=== PATIENT | male | born 1965 | race Caucasian/White ===

== ENCOUNTER 2019-01-01 19:20 | Inpatient (IN) ==
[2019-01-01] MEDS ORDERED: MORPHINE IV ONE ×2 (19:35→21:29)
[2019-01-01 20:24] LABS: BASO# 0.08 X1000 (0.0-0.2); BASO% 0.8 % (0.0-0.8); EOS# 0.18 X1000 (0.0-0.7); EOS% 1.9 % (0.0-10.0); HEMATOCRIT 39.4 % (42.0-52.0); HEMOGLOBIN 13.3 g/dL (14.0-18.0); IMM GRAN# 0.03 X1000 (0.0-0.04); IMM GRAN% 0.3 % (0.0-0.5); LYMPH# 2.51 X1000 (1.2-3.4); LYMPH% 26.1 % (20.5-51.1); MCH 29.7 PG (27-31); MCHC 33.8 g/dL (33-37); MCV 87.9 FL (81-99); MONO# 0.79 X1000 (0.11-0.59); MONO% 8.2 % (1.7-9.3); MPV 11.8 FL (7.4-10.4); NEUT# 6.02 X1000 (1.4-6.5); NEUT% 62.7 % (42.2-75.2); PLT 253 X1000 (130-400); RBC 4.48 XMIL (4.7-6.1); RDW 14.2 % (11.5-14.5); WBC 9.61 X1000 (4.8-10.8)
--- NOTE | 2019-01-01 20:24 | Diag Imaging Result Doc PS360 ---
EXAM: CHEST-1 VIEW - 01/01/2019 HISTORY: pre op for surgery TECHNIQUE: One view chest COMPARISON: None. FINDINGS: Heart size is normal. There is tortuosity of the thoracic aorta. Lungs appear clear. There is no pleural effusion or pneumothorax identified. IMPRESSION: No evidence of acute disease. Electronically signed by Jay Pleitez 01/01/2019 8:21 PM
[2019-01-01 20:25] LABS: INR 0.96; PROTIME 13.6 Seconds (11.0-16.0)
[2019-01-01 20:26] LABS: PTT 29.2 Seconds (22.3-41.8)
--- NOTE | 2019-01-01 20:36 | Diag Imaging Result Doc PS360 ---
EXAM: CT ABD/PELVIS W/IV CONT ONLY - 01/01/2019 HISTORY: puncture wound to anus TECHNIQUE: CT abdomen/pelvis with intravenous contrast. COMPARISON: None. FINDINGS: The visualized lung bases appear essentially clear. There are no substantial abnormalities of the liver, spleen, adrenal glands, pancreas, or kidneys identified. There are no calcified gallstones seen. There is a 5.9 cm and AP dimension by 5.5 cm in transverse dimension primarily mildly increased density lesion in the presacral region adjacent to anterior margin of the upper sacrum. This is compatible with hematoma. There is no extraluminal gas identified. There is no free air identified. There is no fracture identified. There are lumbar spine degenerative changes noted. There is no evidence of bowel obstruction. There is no substantial free fluid. The appendix is unremarkable. Delay images of the pelvis show no contrast extravasation from the urinary bladder. IMPRESSION: 5.9 x 5.5 cm presacral hematoma which abuts the anterior margin of the upper sacrum. No evidence of fracture. No extraluminal gas identified. No free air. This exam was performed using automated exposure control, adjustment of mA or kV according to patient size, and/or use of iterative reconstruction technique. Electronically signed by Jay Pleitez 01/01/2019 8:33 PM
[2019-01-01 20:47] LABS: AGAP 15; ALB/GLOB RATIO 1.3; ALKALINE PHOSPHATASE 79 U/L (32-122); BUN 13 mg/dL (8-22); CALCIUM 9.4 mg/dL (8.8-10.2); CHLORIDE 107 mmol/L (98-107); COSMO 283; CREATININE 0.9 mg/dL (0.7-1.2); ESTIMATED GFR > 60; GLUCOSE 87 mg/dL (70-104); GOT 25 U/L (10-34); GPT 21 U/L (10-44); POTASSIUM 4.3 mmol/L (3.5-5.1); SODIUM 142 mmol/L (136-145); TCO2 20 mmol/L (25-35); TOTAL BILIRUBIN 0.32 mg/dL (0.20-1.00); TOTAL PROTEIN 7.2 g/dL (6.3-8.3)
[2019-01-01] MEDS ORDERED: VANCOMYCIN 1 GM/NS 1 GM/250 ML IVPB IV ONE (21:13)
[2019-01-01] MEDS ORDERED: ZOSYN 3.375 GM in NS 50 ML IV ONE (21:13)
[2019-01-01] MEDS ORDERED: NICODERM PATCH TD ONE (21:29)
--- NOTE | 2019-01-01 21:34 | PROVIDER DOCUMENTATION ---
This chart was entered by Kaylynn Razo Scribe, acting as scribe for Lauro Rodríguez MD. HPI-Rash/Wound/ReCheck - General Chief Complaint: General Adult Stated Complaint: foreign body Time Seen by Provider: 01/01/19 19:24 Source: patient Allergies/Adverse Reactions: Allergies Allergy/AdvReac Type Severity Reaction Status Date / Time No Known Allergies Allergy Verified 08/03/12 10:50 Home Medications: Home Medication List Medication Instructions Recorded Confirmed Last Taken Type No Home Medications 08/03/12 08/03/12 Unknown History - History of Present Illness-Dermatology Nature of Presenting Problem: 53 yom c/o pt was on ladder and fell 4 ft onto a [place] and states a stick went up rectum. pt states he had been drinking and snorted 2 lines of cocaine today. pt reports no other injuries. pt is anxious and states pain is sharp and 10/10. Location: reports: lower extremity (rectum) Quality: reports: other (sharp) Severity: reports: moderate Onset/Duration: reports: just prior to arrival Timing: reports: still present Review of Systems - Adult - REVIEW OF SYSTEMS - ADULT Constitutional: reports: no symptoms reported Eyes: reports: no symptoms reported Ears, Nose, Mouth & Throat: reports: no symptoms reported Cardiovascular: reports: no symptoms reported Respiratory: reports: no symptoms reported Gastrointestinal: reports: no symptoms reported Genitourinary: reports: no symptoms reported Musculoskeletal: reports: no symptoms reported Integumentary: reports: see HPI, other (rectum injury due to falling on stick.) Neurological: reports: no symptoms reported Psychiatric: reports: no symptoms reported Endocrine: reports: no symptoms reported Hematologic/Lymphatic: reports: no symptoms reported Allergic/Immunologic: reports: no symptoms reported All Other Systems: Reviewed and Negative Past History - Adult - PAST MEDICAL HISTORY-ADULT Review of Records: reports: Old Records Reviewed, Nursing Assessment Review, Medications Reviewed, Social history reviewed & non-contributory. Major Childhood Illnesses: reports: denies history Cardiovascular: reports: denies history Respiratory: reports: denies history Gastrointestinal: reports: denies history Obstetrical/Gynecological: reports: denies history Genitourinary: reports: denies history Musculoskeletal: reports: denies history Neurological: reports: denies history Psychiatric: reports: other (adhd) Endocrine/Immune: reports: denies history Other Conditions: reports: denies history - PRIOR SURGERIES/PROCEDURES Surgical/Procedure History: reports: tonsillectomy, hernia repair - IMMUNIZATION STATUS Childhood Immunizations: See Nurse Assessment Flu Vaccine: See Nurse Assessment - FAMILY HISTORY Family History: reviewed, not pertinent - SOCIAL HISTORY Smoking: cigarettes, less than 1 pack/day Provider spent 3-5 mins advising pt. on dangers of tobacco.: Discussed manners to quit use, and f/u contacts for add'l counseling. Substance Use: alcohol, marijuana, cocaine Physical Exam-General - PHYSICAL EXAM-ADULT Initial Vital Signs Reviewed: Yes - CONSTITUTIONAL General Appearance: alert, mild distress, anxious. negative: lethargic, slow to respond, obtunded - EYES Eyes: PERRL/EOMI - HEAD, EARS, NOSE, MOUTH & THROAT HENMT: normocephalic/atraumatic, moist mucous membranes, normal ENT inspection - NECK Neck: non-tender, full range of motion, supple, normal inspection - RESPIRATORY Respiratory: chest non-tender, lungs clear, normal breath sounds - CARDIOVASCULAR Cardiovascular: normal peripheral pulses, regular rate, rhythm - GASTROINTESTINAL (ABDOMEN) Abdominal Exam: normal bowel sounds, non tender, soft - GENITOURINARY Male Genitalia: deferred Rectal Exam: normal rectal tone, tenderness (entry location near rectum, no visible debris), other (blood and stool near rectum). negative: decreased tone, hemorrhoids - LYMPHATIC Lymphatic: no adenopathy - MUSCULOSKELETAL Back Exam: normal inspection, no CVA tenderness, no vertebral tenderness Extremity: normal range of motion, non-tender, normal inspection Peripheral Pulses: radial (R): 2+, radial (L): 2+ - SKIN Integumentary: normal color, normal turgor, warm/dry - NEUROLOGIC Neurologic: grossly normal, no motor/sensory deficits - PSYCHIATRIC Psych/Mental Status: normal mood/affect, normal thought content, normal thought process, oriented x 3 Progress - PLAN OF CARE/RESULTS Progress/Plan/Lab Results: Vital Signs - 8 hr 01/01/19 19:48 Temperature 98.4 F Pulse Rate 97 H Respiratory Rate 18 Blood Pressure 120/81 O2 Sat by Pulse Oximetry 96 Laboratory Results - last 24 hr 01/01/19 01/01/19 01/01/19 19:39 19:39 19:39 WBC 9.61 RBC 4.48 L Hgb 13.3 L Hct 39.4 L MCV 87.9 MCH 29.7 MCHC 33.8 RDW Std Deviation 14.2 Plt Count 253 MPV 11.8 H Immature Gran % (Auto) 0.3 Neut % (Auto) 62.7 Lymph % (Auto) 26.1 [facility] % (Auto) 8.2 Eos % (Auto) 1.9 Baso % (Auto) 0.8 Immature Gran # (Auto) 0.03 Neut # (Auto) 6.02 Lymph # (Auto) 2.51 [facility] [place] [facility] # (Auto) 0.79 H Eos # (Auto) 0.18 Baso # (Auto) 0.08 PT 13.6 INR 0.96 PTT (Actin FS) 29.2 Sodium 142 Potassium 4.3 Chloride 107 Carbon Dioxide 20 L Anion Gap 15 BUN 13 Creatinine 0.9 Estimated GFR/1.73 m2 > 60 BUN/Creatinine Ratio 14 Glucose 87 Calculated Osmolality 283 Calcium 9.4 Total Bilirubin 0.32 AST 25 ALT 21 Alkaline Phosphatase 79 Total Protein 7.2 Albumin 4.0 Globulin 3.2 Albumin/Globulin Ratio 1.3 Orders Category Date Time Status Saline Loc NOW Care 01/01/19 19:31 Active CHEST-1 VIEW [RAD] Stat Exams 01/01/19 19:[address] ABD/PELVIS W/IV CONT ONLY [CT] Stat Exams 01/01/19 19:31 Completed CBC WITH ELECTRONIC DIFF [HEME] Stat Lab 01/01/19 19:39 Completed COMPREHENSIVE METABOLIC PANEL [CHEM] Stat Lab 01/01/19 19:39 Completed PROTIME WITH INR [COAG] Stat Lab 01/01/19 19:39 Completed PTT [COAG] Stat Lab 01/01/19 19:39 Completed Morphine Med 01/01/19 19:35 Discontinued 4 mg IV NOW ONE Morphine Med 01/01/19 21:29 Once 4 mg IV NOW ONE Nicotine Patch [Nicoderm Patch] Med 01/01/19 21:29 Once 21 mg TD NOW ONE Piperacillin/Tazobactam [Zosyn] 3.375 gm Med 01/01/19 21:13 Active 0.9% Sodium Chloride Inj [Ns] 50 ml IV NOW Vancomycin 1 gm/Ns Med 01/01/19 21:13 Active 1 gm in 250 ml IV NOW EKG [EKG] Stat Ther 01/01/19 19:31 Ordered A/P: anal trauma due to falling on a stick. [address], started vanc, zosyn, pain controlled. vitals stable. No signicant PMH. Dr Woodward called, will see pt in am, dr ambrosio accepted admission. Result Diagrams: 01/01/19 19:39 01/01/19 19:39 - XRAY 1 XRAY: Bilateral XRAY Study: Chest ( EXAM: CHEST-1 VIEW - 01/01/2019 HISTORY: pre op for surgery TECHNIQUE: One view chest COMPARISON: None. FINDINGS: Heart size is normal. There is tortuosity of the thoracic aorta. Lungs appear clear. There is no pleural effusion or pneumothorax identified. IMPRESSION: No evidence of acute disease. Electronically signed by BDA 01/01/2019 8:21 PM) Impression: Normal Comparison with other Films: no prior study - CT/MRI 1 CT Study: Abdomen (EXAM: CT ABD/PELVIS W/IV CONT ONLY - 01/01/2019 HISTORY: puncture wound to anus TECHNIQUE: CT abdomen/pelvis with intravenous contrast. COMPARISON: None. FINDINGS: The visualized lung bases appear essentially clear. There are no substantial abnormalities of the liver, spleen, adrenal glands, pancreas, or kidneys identified. There are no calcified gallstones seen. There is a 5.9 cm and AP dimension by 5.5 cm in transverse dimension primarily mildly increased density lesion in the presacral region adjacent to anterior margin of the upper sacrum. This is compatible with hematoma. There is no extraluminal gas identified. There is no free air identified. There is no fracture identified. There are lumbar spine degenerative changes noted. There is no evidence of bowel obstruction. There is no substantial free fluid. The appendix is unremarkable. Delay images of the pelvis show no contrast extravasation from the urinary bladder. IMPRESSION: 5.9 x 5.5 cm presacral hematoma which abuts the anterior margin of the upper sacrum. No evidence of fracture. No extraluminal gas identified. No free air. This exam was performed using automated exposure control, adjustment of mA or kV according to patient size, and/or use of iterative reconstruction technique. Electronically signed by BDA 01/01/2019 8:33 PM), Pelvis Impression: Abnormal Comparison with other Films: no prior study Departure - Departure Date of Disposition Decision: 01/01/19 Time of Disposition Decision: 21:32 DIAGNOSIS: Anal disorder Disposition: ADMITTED INPATIENT 09 Certified Medical Emergency: Emergent Condition: Stable Additional Freetext Instructions: We have examined and treated you today on an emergency basis only. This was not a substitute for, or an effort to provide, complete medical care. In most cases, you must let your doctor check you again. Tell your doctor about any new or lasting problems. We cannot recognize and treat all injuries or illnesses in one Emergency Department visit. If you had special tests, such as X-rays or CT scans, will be reviewed by radiologist and will call you if there are any new suggestions Follow up with primary care provider in 1 to 2 days if no improvement. If you do not have a primary care provider, you need to choose one as soon as possible. Take medicines as prescribed. Monitor for any side effects or adverse events from medications. If any side effect, adverse event or rash develops, or if you suspect any other adverse reaction to the medication, then discontinue the medication immediately and contact clinic /PCP or go to the nearest ER. Narcotic meds / sedative meds instruction - patent advised not to drive, operate any machinery or go into water after taking meds as it may impair mental ability to react to the situation in an appropriate manner. Continue other current medicines. Follow up with PCP within 24-48 hours, or sooner if symptoms worsen or fail to improve. Patient / guardian verbalizes understanding of treatment plan, medication, and side effects and agrees with treatment plan. Patient leaves ER in stable condition and ambulatory state. Return to ER as needed. Discharge instructions reviewed verbally and given to patient in written form. Follow up with primary care provider. Referrals and Follow-Ups: None,PCP [Primary Care Provider] - - Critical Care Note This patient required my direct & personal management of CC.: No Attestation - Physician/ JOSE Attestation Patient care was provided by Advanced Practice Provider:: No The physician spent face to face time with patient:: Yes Advanced Practice Provider documentation review:: Supervising physician onsite and consulted in the evaluation and care of this patient. The physician did have a face to face encounter with the patient. This chart was documented by the indicated scribe, (Kaylynn Razo Scribe) and accurately reflects the services I performed and decisions made by me, Lauro Rodríguez MD, as attested by the provider's signature.
--- NOTE | 2019-01-01 22:27 | HISTORY AND PHYSICAL ---
PRIMARY CARE PHYSICIAN: None. CHIEF COMPLAINT: Anal region pain. HISTORY OF PRESENTING ILLNESS: A 53-year-old male without any significant past medical history who presented to emergency department after he had a fall and landed on some shrubs that went through his pants into his sacral and anal region. He states that he developed moderate amount of pain and subsequently had come to the emergency department. In the ED he was evaluated, and he had imaging done, which did show presacral hematoma. Due to his presenting symptoms, he will need admission for further management. At the time of my examination, he had denied any headache, fever, chills, chest pain, shortness of breath, hemoptysis, melena and weight changes. He just complained of pain in his sacral region. PAST MEDICAL HISTORY: None. PAST SURGICAL HISTORY: History of hernia repair. ALLERGIES: No known drug allergies. CURRENT MEDICATIONS: None. SOCIAL HISTORY: A 40-pack years history of smoking. Admits to alcohol use regularly, admits to recent cocaine use and marijuana use. FAMILY HISTORY: No history of coronary disease. REVIEW OF SYSTEMS: Fourteen-point review of systems listed as in HPI. Other systems negative. PHYSICAL EXAMINATION: GENERAL: Cooperative, friendly male. He is in moderate pain in his sacral/anal region. VITAL SIGNS: Temperature 98.4 degrees, pulse 97, respirations 18, blood pressure 120/81. HEENT: Atraumatic. Extraocular movements intact. PERRLA. NECK: No masses. CHEST: Clear to auscultation. CARDIOVASCULAR: Regular rate and rhythm. ABDOMEN: Soft. Positive bowel sounds. GENITOURINARY: Tenderness in sacral/anal region. NEUROLOGIC: Nonfocal. SKIN: Warm. LABORATORIES AND STUDIES: WBC 9.61, hemoglobin 13.3, hematocrit 39.4, platelets 253,000. Sodium 142, potassium 4.3, chloride 107, CO2 20, BUN is 13, creatinine 0.9, glucose is 87. CT of the abdomen and pelvis shows a 5.9 x 5.5 cm presacral hematoma. ASSESSMENT: A 53-year-old male without any significant past medical history claims to have fallen off a ladder and landed on some shrubs that tore through his pants and went up in his sacral/anal region. He developed a moderate amount of pain and was brought to the emergency department. He had imaging done, which did show presacral hematoma. This case was discussed with general surgery who recommended admission for further management. 1. Presacral hematoma from foreign body. 2. Tobacco abuse. 3. Drug abuse with cocaine and marijuana. PLAN: 1. We will admit patient to medical floor with telemetry. 2. Continue supportive treatment with IV fluids, antiemetics, and pain control. 3. Consult General Surgery. 4. Counseled patient on smoking and drug cessation. 5. We will put patient on DVT prophylaxis with SCDs. 6. We will continue to follow and reassess and make further recommendation based on patient's clinical course. cc: Tate Ortega MD
[2019-01-02] MEDS ORDERED: ZOFRAN IV PRN (00:07)
[2019-01-02] MEDS: NS 1,000 ML IV SCH ×3 (00:32→19:36)
[2019-01-02] MEDS: ZOSYN 3.375 GM in NS 50 ML IV SCH ×5 (03:03→21:14)
[2019-01-02] MEDS: MORPHINE IV PRN ×5 (03:03→21:27)
[2019-01-02 07:51] LABS: BASO# 0.03 X1000 (0.0-0.2); BASO% 0.2 % (0.0-0.8); EOS# 0.04 X1000 (0.0-0.7); EOS% 0.2 % (0.0-10.0); HEMOGLOBIN 11.8 g/dL (14.0-18.0); IMM GRAN# 0.04 X1000 (0.0-0.04); IMM GRAN% 0.2 % (0.0-0.5); LYMPH# 1.38 X1000 (1.2-3.4); LYMPH% 7.5 % (20.5-51.1); MCH 29.1 PG (27-31); MCHC 32.8 g/dL (33-37); MCV 88.9 FL (81-99); MONO# 1.31 X1000 (0.11-0.59); MONO% 7.1 % (1.7-9.3); MPV 11.5 FL (7.4-10.4); NEUT# 15.54 X1000 (1.4-6.5); NEUT% 84.8 % (42.2-75.2); PLT 216 X1000 (130-400); RBC 4.05 XMIL (4.7-6.1); RDW 14.3 % (11.5-14.5); WBC 18.34 X1000 (4.8-10.8)
[2019-01-02] MEDS ORDERED: ROBINUL ONE ×2 (08:05→09:55)
[2019-01-02] MEDS ORDERED: XYLOCAINE-MPF 2% ONE (08:05)
[2019-01-02] MEDS ORDERED: ZEMURON ONE ×3 (08:07→10:07)
[2019-01-02] MEDS ORDERED: FENTANYL ONE (08:07)
[2019-01-02] MEDS ORDERED: QUELICIN (DOSE) ONE (08:07)
[2019-01-02] MEDS ORDERED: MORPHINE IV ONE (08:08)
[2019-01-02] MEDS ORDERED: DIPRIVAN 1% ONE (08:08)
[2019-01-02 08:09] LABS: AGAP 11; BUN 12 mg/dL (8-22); CALCIUM 8.5 mg/dL (8.8-10.2); CHLORIDE 103 mmol/L (98-107); COSMO 274; CREATININE 0.8 mg/dL (0.7-1.2); ESTIMATED GFR > 60; GLUCOSE 108 mg/dL (70-104); SODIUM 137 mmol/L (136-145); TCO2 23 mmol/L (25-35)
[2019-01-02] MEDS ORDERED: VERSED ONE (08:54)
[2019-01-02] MEDS ORDERED: EPHEDRINE ONE (09:09)
[2019-01-02] MEDS ORDERED: ZOFRAN ONE (09:09)
[2019-01-02] MEDS ORDERED: MARCAINE 0.25% ONE (09:12)
[2019-01-02] MEDS ORDERED: EXPAREL 1.3% ONE (09:13)
[2019-01-02] MEDS ORDERED: SODIUM CHLORIDE 0.9% 10 ML ONE ×2 (09:13→09:14)
[2019-01-02] MEDS ORDERED: NEO-SYNEPHRINE ONE (09:14)
[2019-01-02] MEDS ORDERED: NEOSTIGMINE ONE (09:56)
[2019-01-02 11:13] LABS: URINE SOURCE CATH
[2019-01-02 11:15] LABS: BILIRUBIN URINE NEGATIVE (NEGATIVE); BLOOD URINE NEGATIVE (NEGATIVE); COLOR YELLOW; GLUCOSE URINE NEGATIVE (NEGATIVE); KETONE URINE NEGATIVE (NEGATIVE); LEUKOCYTES URINE NEGATIVE (NEGATIVE); NITRITE URINE NEGATIVE (NEGATIVE); PH URINE 5.5; PROTEIN URINE NEGATIVE (NEGATIVE); SP GRAVITY URINE 1.024; TURBIDITY URINE CLEAR (CLEAR); UROBILINOGEN URINE NORMAL (NORMAL)
[2019-01-02 11:17] LABS: UR EPITHELIAL CELLS <10 /HPF (<10); URINE BACTERIA NEGATIVE /HPF; URINE RBC <10 /HPF (<10); URINE WBC <10 /HPF (<10)
[2019-01-02] MEDS ORDERED: NS 1,000 ML ONE (11:19)
[2019-01-02] MEDS ORDERED: HEPARIN SUBQ SCH (13:00)
--- NOTE | 2019-01-02 13:08 | GENERAL SURGERY CONSULTATION ---
DATE: 01/02/2019 REQUESTING PHYSICIAN: The hospitalist. REASON FOR CONSULTATION: Anal pain status post trauma. HISTORY OF PRESENT ILLNESS: A 54-year-old gentleman who apparently fell off a ladder and fell into some scrubs and landed on his sacral anal region, coming to the emergency department with abdominal rectal pain. He had a CT scan that showed a presacral hematoma. He still reports significant pain in his bottom. He still had a significant amount of blood around the area, but reports significant tenderness in the area. He has never had pain like this before. PAST MEDICAL HISTORY: None. PAST SURGICAL HISTORY: Includes previous hernia repair. ALLERGIES: None. CURRENT MEDICATIONS: He is on vancomycin and Zosyn. SOCIAL HISTORY: Current smoker. FAMILY HISTORY: Reviewed. Patient noncontributory. REVIEW OF SYSTEMS: A full 10 point review of systems obtained, negative except as specified in HPI. PHYSICAL EXAMINATION: Vital Signs: Patient is currently afebrile. Vital signs stable. General exam: No acute distress, but appears uncomfortable. male looks stated age. HEENT: Normocephalic, atraumatic. Pupils equal, round, reactive to light. Mucous membranes moist. Oropharynx benign. Neck: Supple. Trachea midline. Cardiovascular: Regular rate and rhythm. Lungs: Grossly clear. Abdomen: Soft. Some mild suprapubic tenderness. Rectal Exam: Limited secondary to pain, but there is blood around the area. Extremities: Moves all extremities. Neurologic: Grossly intact. Skin: No signs of jaundice. Vascular: All extremities perfused. LABORATORY: Reviewed. White blood cell count is normal, hematocrit is normal, platelet count is normal. Remainder of labs reviewed. X-RAY: CT scan independently reviewed and radiology report as noted above. ASSESSMENT AND PLAN: A 54-year-old gentleman with rectal trauma . 1. Rectal trauma. At this time, patient has significant pain in his anorectal region. On limited exam, he does have a hematoma in the presacral region. There is concern he might have a laceration. Given this, we will plan on examining the area under anesthesia with flexible sigmoidoscopy and/or rigid proctoscope. If he does have a rectal injury, may need to do reverting loop colostomy. This was all discussed with the patient, discussing the risks, benefits, alternatives of the procedure. He wants to proceed. We will bring the OR crew and do this today. cc: Gabriel Woodward MD
--- NOTE | 2019-01-02 13:27 | OPERATIVE NOTE ---
PROCEDURE DATE: 01/02/2019 PREOPERATIVE DIAGNOSES: 1. Rectal trauma status post fall with penetrating transrectal trauma. 2. Presacral hematoma. POSTOPERATIVE DIAGNOSES: 1. Anal laceration involving the right inferior lateral quadrant of the anus possibly involving the sphincter. 2. Rectal laceration at approximately 10 cm, which was 40% circumferential, but not full thickness. PROCEDURE: 1. Rectal exam under anesthesia. 2. Rigid proctoscope. 3. Flexible sigmoidoscopy. 4. Complex repair of anal laceration with debridement and removal of anal tissue. 5. Exploratory laparotomy. 6. Diverting loop colostomy. SURGEON: Gabriel Woodward MD HEEL SCOURER: None. ANESTHESIA: General endotracheal. INTRAOPERATIVE FINDINGS: He had a laceration noted to the right inferior quadrant of the rectum. It was full thickness through the mucosa, possibly involving the sphincter on the rigid proctoscope could not see that much, but it looked like there might be potential injury. On flexible sigmoidoscopy at approximately 10 cm we found an anterior upper quadrant 40% circumferential injury. COMPLICATIONS: None at the time of dictation. ESTIMATED BLOOD LOSS: 50 mL. SPECIMENS REMOVED: Anal tissue. BRIEF HISTORY: This 54-year-old gentleman who fell and landed on plants. Apparently had a penetrating trauma with the limb of the plant through his rectum. He came into the emergency department in excruciating pain. He had a CT scan that showed a hematoma in the presacral region and the laceration, felt that he needed examination under anesthesia. We did discuss extensively the risks, benefits, alternatives of the procedure risks including, but not limited to bleeding, infection, risk of anesthesia, risk of need for colostomy, all discussed with the patient. He voiced understanding and wished to proceed with procedure. DESCRIPTION OF PROCEDURE: After informed consent was obtained, the patient brought to the operative theater, transferred to the operative table, placed in supine position general endotracheal anesthesia was then performed without complication. We first turned our attention to putting the patient in candy canes in the lithotomy position. We prepped and draped the rectum in standard fashion. I did a formal time-out, confirming patient, date, procedure, all were in agreement. At first we noticed a laceration on the right lower quadrant of the anus. It was full thickness and possibly involved the sphincter. I did a digital rectal exam did not feel any other masses. I inserted the [place] anoscope. It looked like the laceration traveled approximately 3 cm into the anus. We then inserted a rigid proctoscope, passed it all the way in. It was difficult visualization, but I thought I saw all potential for injury. I then removed the rigid proctoscope and inserted a flexible sigmoidoscopy, passed it all the way 10 cm. At 10 cm we saw laceration through the mucosa but could not see into the peritoneum. Given this, I felt that we need to do exploratory laparotomy. Before we did this we debrided the necrotic tissue at the anal laceration, debrided back to healthy tissue. I closed it in multiple layers using 3-0 Vicryl, 3-0 chromic. We had good approximation. We then turned our attention to the abdomen. Anesthesia did a transabdominal plain block. We moved him to the supine position. We prepped and draped the abdomen in sterile fashion. I performed a standard midline incision. Upon entering the abdomen we noticed that there was a hematoma noted right above the sigmoid colon, too high for a presacral drain. We found the laceration in the rectum, which was at the rectosigmoid junction, it was not through the serosa. Therefore, I did not think a primary repair would be feasible, but given the fact the injury looked pretty significant and 40% circumferential, I felt as though the patient would benefit from a diversion. We mobilized the sigmoid colon, found a spot on the abdominal wall at the lateral border of the rectus sheath, made an incision for ostomy, brought the colon up through this, oriented it correctly. We then irrigated out the abdomen, then closed it with a running loop PDS and closed the skin with kenny. We then matured the ostomy with 3-0 Vicryl and a T-bar to keep it up above the skin. The patient tolerated procedure well, was transferred back to the floor and the recovery room in stable condition. Postoperatively, we will manage him with the plan on imaging his rectal injury in approximately 3 months to see if it is healed, we will do this by barium enema and then at that point, if it is, he will potentially plan on taking down his ostomy. If it is not healed, we will plan on resection with primary repair, probably primary anastomosis. cc: MD JESSE Portillo
--- NOTE | 2019-01-02 17:51 | PROGRESS NOTE ---
DATE: 01/02/2019 INTERVAL HISTORY: Mr. Pritchett was admitted after a fall on shrubs leading to anal, rectal and gluteal trauma. On admission, abdomen and pelvis CT had detected about 6 x 6 cm presacral hematoma, which was abutting the anterior margin of the upper sacrum without any evidence of fracture and Surgery was consulted. Considering patient's bruises, he was taken to the operating room for anal examination, and he underwent proctoscopy, sigmoidoscopy. It was found that he did have mucosal circum erosion about 10 cm inside the rectosigmoid junction, which was circumferential involving a good part of circumference. He also had damage to right-sided inferior anal sphincter. Considering risk for perforation, it was decided to perform exploratory laparotomy where it was found that he had a hematoma which was confined within serosa without perforation at the rectosigmoid junction. He underwent diverting loop colostomy. SUBJECTIVE: Postoperatively, he is complaining of pain, but does not appear in a lot of distress. We discussed about changing his pain medication regimen. I answered all of his questions. He denies any known medical illnesses. He is not taking any medications currently. VITALS: Detect temperature of 98.9 degrees, pulse 85, respiratory rate 18, blood pressure 112/69, saturating 96% on room air. PHYSICAL EXAMINATION: HEENT: He does have dental pigmentation, likely because of tobacco use. Otherwise, oral cavity is moist. Lungs: Air entry bilaterally equal. No wheeze, rhonchi, crackles. Heart: S1, S2 normal. No murmur or gallop. Abdomen: Soft. There is a diverting loop colostomy and infraumbilical scar of laparotomy and some bleeding around that. Extremities: He does not have lower extremity edema. Neurologic: He is alert and oriented x3. LABS: Suggestive of leukocytosis, normocytic anemia, normal platelet count, normal electrolytes. MICROBIOLOGY: No data. ASSESSMENT AND PLAN: 1. Fall leading to anorectal trauma from plant and shrubs, status post exploratory laparotomy and diverting loop colostomy. Continue intravenous fluids and intravenous Zosyn prophylactically. Today is postoperative day zero. Continue pain management with intravenous morphine, and I will start him on oral medication. 2. Prior history of polysubstance abuse with cocaine and marijuana. The patient denies active use. 3. Disposition: Patient remains inside the hospital for postoperative course management. Plan of care discussed with him. All of his questions have been answered. cc: Slim Gracia MD
[2019-01-03] MEDS: MORPHINE IV PRN ×2 (00:29→03:24)
[2019-01-03] MEDS ORDERED: TYLENOL PO PRN (00:50)
[2019-01-03] MEDS: ZOSYN 3.375 GM in NS 50 ML IV SCH ×5 (03:25→22:33)
[2019-01-03] MEDS: DILAUDID IV PRN ×6 (06:03→23:52)
--- NOTE | 2019-01-03 07:40 | GENERAL SURGERY PROGRESS NOTE ---
DATE: 01/03/2019 SUBJECTIVE: Patient doing okay. His pain is better controlled now with what sounds like Dilaudid. OBJECTIVE: Vital Signs: The patient had a low-grade temperature of 100 degrees but otherwise his vital signs have been stable. General Examination: No acute distress. Cardiovascular: Regular rate and rhythm. Lungs: Grossly clear. Abdomen: Soft. Appropriately tender. Ostomy appears viable, just weeping at this point. ASSESSMENT AND PLAN: A 54-year-old gentleman postoperative day #1 from a diverting colostomy for a rectal injury. Postoperative state. At this time, we will put him on a full liquid diet. We will see how he does. I have consulted intrastromal therapy to evaluate him. He does have a T-bar placed in his loop, which we will need to come out on postoperative day #5. cc: Gabriel Woodward MD
[2019-01-03] MEDS: TYLENOL PO SCH ×2 (13:42→19:48)
[2019-01-03] MEDS: HEPARIN SUBQ SCH ×2 (13:43→19:48)
[2019-01-03] MEDS: NICODERM PATCH TD SCH (13:46)
[2019-01-03 13:49] LABS: AGAP 9; BUN 7 mg/dL (8-22); CALCIUM 8.7 mg/dL (8.8-10.2); CHLORIDE 104 mmol/L (98-107); COSMO 274; CREATININE 0.7 mg/dL (0.7-1.2); ESTIMATED GFR > 60; GLUCOSE 113 mg/dL (70-104); POTASSIUM 4.2 mmol/L (3.5-5.1); SODIUM 138 mmol/L (136-145); TCO2 25 mmol/L (25-35)
--- NOTE | 2019-01-03 14:20 | PROGRESS NOTE ---
DATE: 01/03/2019 INTERVAL HISTORY: No acute events overnight. His morphine was not controlling his pain. His IV medications were changed to intravenous hydromorphone. He denies any new complaints. He wants something to sleep tonight, as well as nicotine patch. I discussed with him about the usual clinical course after colostomy and answered all of his questions currently. OBJECTIVE: Vital signs: Temperature of 99 degrees, pulse 64, respiratory rate 20, blood pressure 125/70, saturating 96% on room air. General: Mild distress because of abdominal pain. HEENT: Oral cavity is moist. Dental pigmentation because of oral tobacco use. Lungs: Air entry bilaterally equal. No wheeze, rhonchi, crackles. Cardiovascular: S1, S2 normal. No murmur, rub, or gallop. Abdomen: Soft. Diverting loop colostomy and infraumbilical scar of laparotomy with some oozing around it. Extremities: He does not have lower extremity edema. Neurologic: Alert and oriented x3. LABS: No new labs today. Input and output suggests he has had 1.7 L of urine so far. ASSESSMENT AND PLAN: 1. Fall leading to anorectal trauma from plant and shrubs, status post exploratory laparotomy and diverting loop colostomy considering his rectal trauma and concern for perforation with injury to anal sphincter as well. Continue intravenous fluids and intravenous Zosyn prophylactically. Today is postoperative day 1. Continue pain management with intravenous morphine, acetaminophen, and p.o. oxycodone. The patient has been started on a full liquid diet. Surgery on board. 2. Tobacco abuse. Start patient on nicotine patch. 3. Disposition. Patient remains inside the hospital for postoperative course management. Plan of care discussed with him. All of his questions have been answered. I will continue heparin subcutaneous for DVT prophylaxis. cc: Slim Gracia MD
[2019-01-03] MEDS: SENOKOT PO SCH (19:48)
[2019-01-03] MEDS: COLACE PO SCH ×2 (19:48→22:33)
[2019-01-03] MEDS: MELATONIN PO SCH (19:48)
[2019-01-04] MEDS: MELATONIN PO SCH ×2 (00:06→20:44)
[2019-01-04] MEDS: SENOKOT PO SCH ×3 (00:06→20:44)
[2019-01-04] MEDS: HEPARIN SUBQ SCH ×4 (00:07→20:44)
[2019-01-04] MEDS: ZOSYN 3.375 GM in NS 50 ML IV SCH ×4 (03:20→20:44)
[2019-01-04] MEDS: DILAUDID IV PRN ×6 (03:20→20:53)
[2019-01-04] MEDS: TYLENOL PO SCH ×3 (05:09→20:44)
[2019-01-04 07:22] LABS: BASO# 0.02 X1000 (0.0-0.2); BASO% 0.2 % (0.0-0.8); EOS# 0.33 X1000 (0.0-0.7); EOS% 3.7 % (0.0-10.0); HEMATOCRIT 34.8 % (42.0-52.0); HEMOGLOBIN 11.2 g/dL (14.0-18.0); LYMPH# 1.36 X1000 (1.2-3.4); MCH 29.1 PG (27-31); MCHC 32.2 g/dL (33-37); MCV 90.4 FL (81-99); MONO# 0.69 X1000 (0.11-0.59); MONO% 7.6 % (1.7-9.3); MPV 11.4 FL (7.4-10.4); NEUT# 6.64 X1000 (1.4-6.5); NEUT% 73.5 % (42.2-75.2); PLT 193 X1000 (130-400); RBC 3.85 XMIL (4.7-6.1); RDW 14.3 % (11.5-14.5); WBC 9.04 X1000 (4.8-10.8)
[2019-01-04 07:43] LABS: AGAP 7; BUN 6 mg/dL (8-22); CALCIUM 8.6 mg/dL (8.8-10.2); CHLORIDE 100 mmol/L (98-107); COSMO 266; CREATININE 0.8 mg/dL (0.7-1.2); ESTIMATED GFR > 60; GLUCOSE 108 mg/dL (70-104); PHOSPHORUS 2.9 mg/dL (2.7-4.5); POTASSIUM 4.1 mmol/L (3.5-5.1); SODIUM 134 mmol/L (136-145); TCO2 27 mmol/L (25-35)
--- NOTE | 2019-01-04 09:39 | GENERAL SURGERY PROGRESS NOTE ---
DATE: 01/04/2019 SUBJECTIVE: Patient seems to be doing okay. He tolerated a liquid diet. OBJECTIVE: Vital Signs: Patient is currently afebrile. His vital signs are stable. General: No acute distress. Cardiovascular: Regular rate and rhythm. Lungs: Grossly clear. Abdomen: Soft, appropriately tender. Ostomy is edematous, but functioning. ASSESSMENT AND PLAN: A 54-year-old male status post penetrating trauma to the rectum, currently postoperative day #2 from diverting colostomy. Diverting colostomy. At this time patient has tolerated his full liquid diet. We will advance him to a regular diet. We will get rid of his Childers catheter. We will have enterostromal Therapy to see him today to evaluate for education on ostomy. We will have to remove the T-bar on postoperative day #5. cc: Gabriel Woodward MD MTDD
[2019-01-04] MEDS: COLACE PO SCH ×2 (09:51→20:44)
[2019-01-04] MEDS: NICODERM PATCH TD SCH (09:52)
--- NOTE | 2019-01-04 13:19 | PROGRESS NOTE ---
DATE: 01/04/2019 INTERVAL HISTORY: No acute events. SUBJECTIVE: The patient is feeling okay. No new complaints. Denies chest pain or shortness of breath. His urine catheter was removed today. OBJECTIVE: Vital Signs: Temperature 98.2 degrees, pulse 71, respiratory rate 14, blood pressure 112/85, saturating 97% on room air. General: Not in any acute distress. HEENT: Oral cavity is moist with pigmentation of chronic tobacco chewing. Lungs: Air entry bilaterally equal. No wheeze, rhonchi, crackles. Cardiovascular: S1, S2 normal. No murmur, rub, or gallop. Abdomen: Soft. There is a colostomy bag and infraumbilical scar of laparotomy with some serosanguineous oozing. The colostomy output also appeared serosanguineous. He does not have lower extremity edema. He is alert and oriented x3. LABS: Today suggestive of normocytic anemia, normal blood count, normal platelet count, normal electrolytes and normal kidney function. ASSESSMENT AND PLAN: 1. Mechanical fall leading to anorectal trauma from plants and shrubs, status post exploratory laparotomy and diverting loop colostomy because of concern for anal sphincter injury as well as high rectal injury. Today is postoperative day 2. Continue intravenous Zosyn prophylactically. Continue diet as per surgery recommendation. Continue pain management with intravenous hydromorphone and p.o. oxycodone with acetaminophen. Continue senna and Colace to avoid constipation. 2. Tobacco abuse. The patient was counseled about not using it in future. Continue nicotine patch. 3. Disposition. The patient remains inside the hospital for postoperative course management. Continue heparin subcutaneous for deep vein thrombosis prophylaxis. Plan of care is discussed with him. I also discussed plan of care with his daughter and son-in- law and had answered all of his questions. cc: Slim Gracia MD
[2019-01-04] MEDS ORDERED: SILVER NITRATE APPLICATOR TOP ONE (16:53)
[2019-01-04] MEDS ORDERED: HYDROCORTISONE 1% CREAM TOP PRN (20:55)
[2019-01-05] MEDS: DILAUDID IV PRN ×7 (00:22→20:52)
[2019-01-05] MEDS: ZOSYN 3.375 GM in NS 50 ML IV SCH ×4 (03:49→20:51)
[2019-01-05] MEDS: TYLENOL PO SCH ×3 (03:49→20:53)
[2019-01-05] MEDS: HEPARIN SUBQ SCH ×3 (07:45→20:53)
--- NOTE | 2019-01-05 09:01 | GENERAL SURGERY PROGRESS NOTE ---
DATE: 01/05/2019 SUBJECTIVE: Patient seems to be doing okay, tolerating his diet. He really has not had much ostomy output. There is some air in the appliance. OBJECTIVE: Vital Signs: Patient is currently afebrile. His vital signs stable. General: No acute distress. Cardiovascular: Regular rate and rhythm. Lungs: Grossly clear. Abdomen: Soft, appropriately tender. Some bowel sounds auscultated. Ostomy appears viable. ASSESSMENT AND PLAN: A 54-year-old male status post rectal trauma, currently postoperative day #3 from diverting loop colostomy. Diverting loop colostomy. At this time, we await return of definitive bowel function. He seems to be doing well. We will continue to monitor him. We will need to take the T-bar out from his ostomy on day #5. cc: Gabriel Woodward MD
[2019-01-05] MEDS: COLACE PO SCH ×2 (10:19→20:52)
[2019-01-05] MEDS: SENOKOT PO SCH ×2 (10:19→20:52)
[2019-01-05] MEDS: NICODERM PATCH TD SCH (10:19)
--- NOTE | 2019-01-05 15:00 | PROGRESS NOTE ---
DATE: 01/05/2019 INTERVAL HISTORY: No acute events. SUBJECTIVE: Patient is denying any new complaints except abdominal pain. His colostomy has been passing gas and with that he is experiencing discomfort. He has not had any liquidy ostomy output. He continues to eat okay. VITALS: Currently, vitals detect temperature of 98.1, pulse of 74, respiratory rate 16, blood pressure 150/90, saturating 98% on room air. PHYSICAL EXAMINATION: General: Not in any acute distress. HEENT: Oral cavity is moist with pigmentation of longstanding tobacco chewing. Respiratory: Air entry bilaterally equal. No wheeze, rhonchi or crackles. Cardiovascular: S1, S2 normal. No murmur, rub or gallop. Abdomen: Soft. There is a colostomy bag and infraumbilical scar of laparotomy with some serosanguineous oozing. The colostomy has gas which is actively coming out. He does not have lower extremity edema. Neurologic: He is alert and oriented x 3. LABS: No new labs today. ASSESSMENT AND PLAN: 1. Mechanical fall leading to anorectal trauma from plants and shrubs. Status post exploratory laparotomy and diverting loop colostomy. Because of concern for anal sphincter injury as well as high rectal injury. Today is postoperative day #3. Continue intravenous Zosyn prophylactically as per Surgery recommendation. Continue pain management with intravenous hydromorphone and p.o. oxycodone with acetaminophen. Continue senna and Colace to avoid constipation. My plan is to decrease the frequency of intravenous pain medication tomorrow and encourage him to take p.o. pain medication 2. Tobacco abuse. Continue nicotine patch. 3. Disposition: The patient remains inside the hospital for postoperative followup. Plan of care discussed with him. All of his questions have been answered. cc: Slim Gracia MD MTDD
[2019-01-05] MEDS: MELATONIN PO SCH (20:52)
[2019-01-06] MEDS: OXY IR PO PRN ×6 (00:02→22:26)
[2019-01-06] MEDS: ZOSYN 3.375 GM in NS 50 ML IV SCH ×4 (05:10→21:26)
[2019-01-06] MEDS: TYLENOL PO SCH ×3 (05:11→21:28)
--- NOTE | 2019-01-06 06:42 | GENERAL SURGERY PROGRESS NOTE ---
DATE: 07/08/2019 SUBJECTIVE: Patient seems to be doing well. OBJECTIVE: Vital Signs: Patient is currently afebrile. His vital signs stable. General: No acute distress. Cardiovascular: Regular rate and rhythm. Lungs: Grossly clear. Abdomen: Soft, appropriately tender. Ostomy viable with air in the appliance. ASSESSMENT AND PLAN: A 54-year-old gentleman status post diverting loop colostomy for penetrating rectal trauma, currently postoperative day #4. Postop state. At this time, the patient seems to be doing okay. We will plan on removing his to T-bar from his ostomy tomorrow. Otherwise, continue current treatment. He is on a regular diet. I think we are getting close finally getting him discharged. cc: Gabriel Woodward MD
[2019-01-06 07:18] LABS: BASO# 0.02 X1000 (0.0-0.2); BASO% 0.3 % (0.0-0.8); EOS# 0.33 X1000 (0.0-0.7); EOS% 4.3 % (0.0-10.0); HEMATOCRIT 37.2 % (42.0-52.0); LYMPH# 1.45 X1000 (1.2-3.4); LYMPH% 18.9 % (20.5-51.1); MCH 28.9 PG (27-31); MCHC 32.3 g/dL (33-37); MCV 89.6 FL (81-99); MONO# 0.71 X1000 (0.11-0.59); MONO% 9.2 % (1.7-9.3); MPV 11.1 FL (7.4-10.4); NEUT# 5.17 X1000 (1.4-6.5); NEUT% 67.3 % (42.2-75.2); PLT 229 X1000 (130-400); RBC 4.15 XMIL (4.7-6.1); WBC 7.68 X1000 (4.8-10.8)
[2019-01-06 07:37] LABS: AGAP 11; BUN 10 mg/dL (8-22); CALCIUM 9.4 mg/dL (8.8-10.2); CHLORIDE 100 mmol/L (98-107); COSMO 275; CREATININE 0.7 mg/dL (0.7-1.2); ESTIMATED GFR > 60; GLUCOSE 110 mg/dL (70-104); PHOSPHORUS 2.7 mg/dL (2.7-4.5); SODIUM 138 mmol/L (136-145); TCO2 27 mmol/L (25-35)
[2019-01-06] MEDS: HEPARIN SUBQ SCH ×3 (09:29→21:28)
[2019-01-06] MEDS: SENOKOT PO SCH ×2 (09:29→21:28)
[2019-01-06] MEDS: COLACE PO SCH ×2 (09:30→21:28)
[2019-01-06] MEDS: NICODERM PATCH TD SCH (09:30)
[2019-01-06] MEDS ORDERED: DILAUDID IV PRN (20:24)
--- NOTE | 2019-01-06 21:12 | PROGRESS NOTE ---
DATE: 01/06/2019 INTERVAL HISTORY: No acute events. The patient has been eating okay. His colostomy has started putting out some output. He was able to work a little bit with physical therapy where he was able to take 4 steps. SUBJECTIVE: He denies any new complaints. Denies any nausea or vomiting. We discussed about decreasing the intravenous pain medication and also decreasing the steroid opioid dose and having him exercise a little bit. I answered all of his questions. OBJECTIVE: Current Vitals: Temperature 98.2 degrees, pulse 79, respiratory rate 125/82, saturating 96% on room air. General: Does not appear in any acute distress. Oral cavity is moist. He does have chronic tobacco pigmentation and what appears to be submucosal fibrosis affecting inner aspect of his lower lip with tobacco pigmentation of teeth. No pallor, cyanosis, clubbing or icterus. Respiratory: Air entry bilaterally equal. No wheeze, rhonchi or crackles. Cardiovascular: S1, S2 normal. No murmur or gallop. Abdomen: Soft. Colostomy bag with infraumbilical scar of laparotomy with some stool output in the colostomy. He does not have any lower extremity edema. He is alert and oriented x3. LABORATORY DATA: Today is remarkable for normocytic anemia, normal platelet count, normal electrolytes. MICROBIOLOGY: No data. ASSESSMENT AND PLAN: 1. Mechanical fall leading to anorectal trauma from plants and shrubs. When he was examined rectally under anesthesia, there was a concern for high rectal trauma and injury to anal sphincter so he required laparotomy. He is status post exploratory laparotomy and diverting loop colostomy on 01/02/2019. His postoperative course has been unremarkable. Today is postoperative day 4. We will change pain medication regimen as we move towards discharge. Continue oxycodone, acetaminophen and hydromorphone. Continue senna and Colace to avoid constipation. I will appreciate surgery recommendation about stopping intravenous Zosyn since he has not demonstrated any signs of peritonitis or infection postoperatively. 2. Tobacco abuse. Continue nicotine patch. 3. Insomnia. Continue melatonin. DISPOSITION: The patient has been progressing well. We will anticipate discharge in the next 48 hours or so once his ambulation improves. Plan of care was discussed with the patient at the time of discharge. The patient might just need home care for colostomy. Plan of care discussed with the patient and all of his questions have been answered. cc: Slim Gracia MD
[2019-01-06] MEDS: MELATONIN PO SCH (21:28)
[2019-01-07] MEDS: ZOSYN 3.375 GM in NS 50 ML IV SCH ×3 (05:37→14:30)
[2019-01-07] MEDS: TYLENOL PO SCH ×2 (05:39→14:29)
[2019-01-07] MEDS: OXY IR PO PRN ×2 (05:39→11:41)
[2019-01-07] MEDS: HEPARIN SUBQ SCH ×2 (05:40→14:30)
--- NOTE | 2019-01-07 06:29 | GENERAL SURGERY PROGRESS NOTE ---
DATE: 01/07/2019 SUBJECTIVE: The patient seems to be doing well. He is postoperative day 5 from his diverting loop colostomy. I removed the T-bar at the bedside although there is some slight difficulty with the T-bar breaking, but we were able to remove it in its pieces completely. The patient tolerated it at bedside from a surgical point of view. He is having ostomy output, tolerating a regular diet, and I think he can probably be considered ready for discharge here today or tomorrow. I need to see him back in the office in a week. cc: Gabriel Woodward MD
[2019-01-07] MEDS: NICODERM PATCH TD SCH (08:51)
[2019-01-07] MEDS: SENOKOT PO SCH (08:51)
[2019-01-07] MEDS: COLACE PO SCH (08:51)
[2019-01-07 13:22] VITALS: BP 117/86
--- NOTE | 2019-01-07 20:05 | DISCHARGE SUMMARY ---
ADMISSION DATE: 01/01/2019 DISCHARGE DATE: 01/07/2019 ADMISSION DIAGNOSES: 1. Presacral hematoma from foreign body. 2. Tobacco abuse. 3. Drug abuse with cocaine and marijuana. DISCHARGE DIAGNOSES: 1. Mechanical fall leading to anorectal trauma from plants and shrubs. Apparently when he was examined rectally under anesthesia, there was concern for high rectal trauma and injury to the anal sphincter, so he required laparotomy. He is status post exploratory laparotomy and diverting loop colostomy on 01/02/2019. Today is postop day 5. 2. Tobacco abuse. Continue nicotine patch, and 6-minute conversation about tobacco cessation. 3. Insomnia. Continue melatonin. CONSULTATIONS: Dr. Gabriel Woodward. PROCEDURES/SURGERIES: On 01/02/2019, the patient underwent rectal exam under anesthesia with rigid proctoscope, flexible sigmoidoscopy, complex repair of anal laceration with debridement and removal of anal tissue, exploratory laparotomy and diverting loop colostomy. Post-procedure diagnosis was anal laceration involving the right inferior lateral quadrant of the anus, possibly involving the sphincter, rectal laceration at approximately 10 cm which was 40% circumferential but not full thickness. There was estimated blood loss of 50 mL, and specimens removed were anal tissue, and there were no complications noted during the procedure. HOSPITAL COURSE: Mr. Oc Pritchett is a 54-year-old male without any significant medical history other than issues with using cocaine and marijuana, and apparently he is a smoker as well. He presented on 01/01/2019 to the emergency department after he had a fall and landed on some shrubs that went through his pants and into his sacrum and anal region. He states that it developed a moderate amount of pain, and he subsequently had to come to the emergency department. When he was evaluated, imaging showed a presacral hematoma, and he was admitted for further management, where General Surgery was consulted. General Surgery evaluated and took him for surgery on 01/02/2019 and performed the above procedures listed, with the above results as dictated. He was started on IV fluids and Zosyn prophylactically. He received IV pain medication. On postop day 1 they started him on a full liquid diet. Intrastromal therapy was evaluated. There was a T-bar placed in his loop, which would need to come out on postoperative day 5. He tolerated the full liquid diet, and he was advanced to a regular diet. The anal tissue that was sent for pathology came back with mucosal ulceration with extensive edema, focal necrosis, and thrombosis. On postop day the T-bar was removed from the ostomy, although there was some slight difficulty with the T-bar breaking, but they were able to remove it in pieces completely. This was done at the bedside. The ostomy was starting to put out. He will continue to tolerate a regular diet, and he is appropriate for discharge. General Surgery wants him back in the office within a week. DISCHARGE PHYSICAL EXAMINATION: VITAL SIGNS: Temperature 98.0, heart rate 70, respiratory rate 16, blood pressure 121/85, O2 saturation 98% on room air. DISCHARGE LABORATORY DATA: White blood cells 7000, hemoglobin 12, hematocrit 37, platelet count 229. Sodium 138, potassium 4.0, BUN 10, creatinine 0.7, glucose 110, magnesium 2.0. PERTINENT IMAGING: On 01/01/2019, chest x-ray was negative for acute findings. Abdominopelvic CT showed a 5.9 x 5.5 cm presacral hematoma which abuts to the anterior margin of the upper sacrum. No evidence of fracture. DISCHARGE MEDICATIONS: 1. Melatonin 3 mg p.o. nightly. 2. Colace 100 mg p.o. twice daily. 3. Oxy IR 5 mg p.o. every 4 hours p.r.n. DISCHARGE DIET: Regular. DISCHARGE ACTIVITY: No driving until directed by MD. No driving while taking pain medication. No heavy lifting. Activity as tolerated. WOUND CARE: Keep incision clean and dry. Colostomy care was explained by Belkys Olsen RN, wound care nurse. DISCHARGE FOLLOWUP: Dr. Gabriel Woodward on 01/18/2019 at 9 a.m. OTHER DISCHARGE INSTRUCTIONS: If your condition changes, contact your physician and/or return to the emergency department. Changes may include but are not limited to: Shortness of breath, increased fatigue, excess bleeding, unexplained weight loss or gain, unimaginable pain signs or symptoms of infection. DISCHARGE DISPOSITION: Home. Dictated by LUKASZ Duque for Willy Lopez MD cc: LUKASZ Duque MD Matthew L. Figh, MD I have seen and examined Mr Pritchett today and he currently asymptomatic and stable for discharge. He was seen today with surgery who are also ok with the discharge. Wound care has come to teach Mr Pritchett ostomy care. I have reconciled his home medications. All the discharge recommendations are discussed with him and he voices understanding. Discharge Time: 36 minutes. JESSE
== END 2019-01-07 14:55 | disposition home or self-care (01) | DRG 331 ==
LOC: ED 19:20 → 3N 22:05 → SUATTDRO 22:05
PROVIDERS: ATTEND Internal Medicine
PROC: GE.COLS (2019-01-02 09:00)
CPT/HCPCS: 71010; 71045; 74177; 80048; 80053; 81001; 83735; 84100; 85025; 85610; 85730; 88304; 93005; 94761; 94799; 96365; 96367; 96375; 96376; 99285; A9270; C9290; J0330; J1170; J1644; J2250; J2270; J2370; J2405; J2543; J3010; J3370; J7030; Q9967; S0020

== ENCOUNTER 2019-03-31 05:24 | Inpatient (IN) ==
[2019-03-31] MEDS ORDERED: LR 1,000 ML ONE (10:47)
[2019-03-31] MEDS ORDERED: ENTEREG ONE (10:48)
[2019-03-31] MEDS ORDERED: NORCURON ONE ×2 (10:58→11:55)
[2019-03-31] MEDS ORDERED: SODIUM CHLORIDE 0.9% 0 ML ONE (10:58)
[2019-03-31] MEDS ORDERED: QUELICIN (DOSE) ONE ×2 (10:58→11:55)
[2019-03-31] MEDS ORDERED: ZOFRAN ONE ×2 (10:58→12:53)
[2019-03-31] MEDS ORDERED: XYLOCAINE-MPF 2% ONE ×2 (10:58→11:55)
[2019-03-31] MEDS ORDERED: MEFOXIN 2 GM in D5W 50 ML IV ONE (11:00)
[2019-03-31] MEDS ORDERED: FENTANYL ONE ×2 (11:00→11:55)
[2019-03-31] MEDS ORDERED: MEFOXIN 2 GM/NS 2 GM/50 ML IVPB IV ONE (11:00)
[2019-03-31] MEDS ORDERED: DIPRIVAN 1% ONE ×2 (11:02→11:56)
[2019-03-31] MEDS ORDERED: ROBINUL ONE ×2 (11:06→11:55)
[2019-03-31] MEDS ORDERED: NEOSTIGMINE ONE ×2 (11:07→13:01)
[2019-03-31] MEDS ORDERED: HURRICAINE SPRAY (DOSE) ONE (11:47)
[2019-03-31] MEDS ORDERED: STERILE WATER INJ. ONE (11:55)
[2019-03-31] MEDS ORDERED: MARCAINE 0.25% ONE (12:18)
[2019-03-31] MEDS ORDERED: EXPAREL 1.3% ONE (12:18)
[2019-03-31] MEDS ORDERED: SODIUM CHLORIDE 0.9% 10 ML ONE (12:18)
[2019-03-31] MEDS ORDERED: DECADRON ONE (12:53)
[2019-03-31 13:26] LABS: URINE SOURCE CATH
[2019-03-31] MEDS ORDERED: DILAUDID ONE (13:47)
[2019-03-31 13:49] LABS: BILIRUBIN URINE NEGATIVE (NEGATIVE); BLOOD URINE NEGATIVE (NEGATIVE); COLOR STRAW; GLUCOSE URINE NEGATIVE (NEGATIVE); KETONE URINE NEGATIVE (NEGATIVE); LEUKOCYTES URINE NEGATIVE (NEGATIVE); NITRITE URINE NEGATIVE (NEGATIVE); PH URINE 5.5; PROTEIN URINE NEGATIVE (NEGATIVE); TURBIDITY URINE CLEAR (CLEAR); UROBILINOGEN URINE NORMAL (NORMAL)
[2019-03-31 13:51] LABS: UR EPITHELIAL CELLS <10 /HPF (<10); URINE BACTERIA NEGATIVE /HPF; URINE RBC <10 /HPF (<10); URINE WBC <10 /HPF (<10)
[2019-03-31] MEDS ORDERED: OFIRMEV 1000 MG/ISOTONIC SOLN 1,000 MG/100 ML BOTTLE ONE (14:56)
[2019-03-31] MEDS ORDERED: D5 1/2 NS + KCL 20 MEQ 1,000 ML ONE (14:56)
--- NOTE | 2019-03-31 15:03 | OPERATIVE NOTE ---
PROCEDURE DATE: 03/31/2019 PREOPERATIVE DIAGNOSES: 1. History of rectal trauma. 2. No longer needed colostomy. POSTOPERATIVE DIAGNOSES: 1. History of rectal trauma. 2. No longer needed colostomy. PROCEDURE: Open loop colostomy takedown with [id number] stapled anastomosis of the sigmoid colon. SURGEON: Gabriel Woodward MD SOFA INSPECTOR: Vlaidmir Kaplan MD. Dr. Kaplan assisted with the entirety of the case. His presence was crucial for completion of the case. ANESTHESIA: General endotracheal. INTRAOPERATIVE FINDINGS: As dictated. COMPLICATIONS: None at the time of dictation. ESTIMATED BLOOD LOSS: 100 mL. SPECIMENS: Moved colostomy. BRIEF HISTORY: A 54-year-old gentleman who had rectal trauma and had a rectal perforation. He had had a diverting loop colostomy done. He improved clinically, felt that it would be safe to take it down. We did do a barium study, which did not show any injury to the rectum. We felt that we could repair him. The risks, benefits, and alternatives were discussed and all questions answered. DESCRIPTION OF PROCEDURE: After informed consent was obtained, the patient was brought to the operative theatre, transferred to the operating table, and placed in supine position. General endotracheal anesthesia was then performed without complication. A formal time-out was then performed, confirming patient, date, and procedure. All in agreement that time, attention was given to the abdomen. We opened his previous midline incision to enter into the abdomen. He did not have a significant amount of adhesions. We turned our attention to the colostomy. It was relatively free on the inside. We made an elliptical incision around it on the skin and dissected the colostomy free to be able to push it back into the abdomen. Once we had done this, we freed up the sigmoid colon. It was very redundant and amenable to a stapled [id number] anastomosis. We initially fired through the colostomy and stapled it, but the anastomosis lumen was small so we resected this area and redid the anastomosis with a PETAR stapler doing a [id number] fashion. We oversewed the staple line and placed a stitch in the crotch. We did reexamine the rectum and it appeared to be healthy and without any masses and there was no other pathology in the abdomen. We irrigated out the abdomen copiously until the suctioned fluid was clear. We then closed the old colostomy site in 2 layers, closing the posterior and anterior fascia from a posterior and an anterior approach, respectively. We then closed the fascia with a running loop PDS, stapled the skin, and placed Telfa marko in the colostomy site. The patient tolerated the procedure well and was transferred back to the recovery room. cc: Gabriel Woodward MD
[2019-03-31] MEDS: DILAUDID ONE ×2 (15:29→15:36)
[2019-03-31] MEDS ORDERED: ZOFRAN IV PRN (15:29)
[2019-03-31] MEDS: MEFOXIN 2 GM in D5W 50 ML IV SCH (17:58)
[2019-03-31] MEDS: NORCO-10 PO PRN ×2 (19:00→22:59)
[2019-03-31] MEDS: D5 1/2 NS + KCL 20 MEQ 1,000 ML IV SCH (19:03)
[2019-03-31] MEDS: OFIRMEV 1000 MG/ISOTONIC SOLN 1,000 MG/100 ML BOTTLE IV SCH (21:38)
[2019-03-31] MEDS: PERIDEX MT SCH (21:39)
[2019-04-01] MEDS: MEFOXIN 2 GM in D5W 50 ML IV SCH ×3 (02:15→13:17)
[2019-04-01] MEDS: OFIRMEV 1000 MG/ISOTONIC SOLN 1,000 MG/100 ML BOTTLE IV SCH ×2 (02:55→08:47)
[2019-04-01] MEDS: NORCO-10 PO PRN ×5 (02:55→21:28)
--- NOTE | 2019-04-01 06:27 | GENERAL SURGERY PROGRESS NOTE ---
DATE: 04/01/2019 SUBJECTIVE: Patient seems to be doing well. He has tolerated clear liquids. OBJECTIVE: Vital Signs: Patient is currently afebrile. His vital signs are stable. General: No acute distress. Cardiovascular: Regular rate and rhythm. Lungs: Grossly clear. Abdomen: Soft, appropriately tender. Dressings in place. LABORATORY: None this morning. ASSESSMENT AND PLAN: A 54-year-old gentleman, currently postoperative day 1 from a colostomy takedown. Postop state. At this time, we will keep him as is. He is scheduled to have his diet advanced. He is on pain medicine. He is on heparin. He is on Entereg. He has SCDs on. Continue antibiotics until midday today and monitor him closely. cc: Gabriel Woodward MD
[2019-04-01] MEDS: HEPARIN SUBQ SCH ×3 (07:01→21:28)
[2019-04-01] MEDS: COLACE PO SCH (08:46)
[2019-04-01] MEDS: PERIDEX MT SCH ×2 (08:46→21:28)
[2019-04-01] MEDS: ENTEREG PO SCH ×2 (08:47→21:28)
[2019-04-01] MEDS: D5 1/2 NS + KCL 20 MEQ 1,000 ML IV SCH (08:54)
[2019-04-02] MEDS: NORCO-10 PO PRN ×5 (02:37→21:59)
[2019-04-02] MEDS: D5 1/2 NS + KCL 20 MEQ 1,000 ML IV SCH (04:19)
[2019-04-02] MEDS: HEPARIN SUBQ SCH ×3 (05:09→20:07)
--- NOTE | 2019-04-02 05:38 | GENERAL SURGERY PROGRESS NOTE ---
DATE: 04/02/2019 SUBJECTIVE: Patient seems to be doing okay. His blood pressure has been up a little bit today with diastolic over 100. He is tolerating his regular diet. He is passing gas, but he seems to be a little bit bloated, at this point. He has not had a bowel movement. OBJECTIVE: Vital Signs: Patient is currently afebrile. Most recent blood pressure 154/100. General: No acute distress. Cardiovascular: Regular rate and rhythm. Lungs: Grossly clear. Abdomen: Soft, appropriately tender. Removed dressing, incisions intact. Removed marko from colostomy site. Wound seems to be healing. No signs of infection. ASSESSMENT AND PLAN: A 54-year-old gentleman, currently postoperative day #2 from a colostomy takedown. 1. Postoperative state at this time. We will keep him on a regular diet. Would like to see more definitive return of bowel function and less bloating before discharge but, hopefully, he can be discharged in next couple of days. 2. Hypertension. At this time, patient does not have a primary care physician. His systolic blood pressure is okay, but his diastolics over 100. I will get the hospitalist to see him and recommend home blood pressure medication. cc: Gabriel Woodward MD
[2019-04-02] MEDS: ENTEREG PO SCH ×2 (08:34→20:08)
[2019-04-02] MEDS: PERIDEX MT SCH ×2 (08:34→20:06)
[2019-04-02] MEDS: COLACE PO SCH (08:34)
--- NOTE | 2019-04-02 12:18 | CONSULTATION ---
DATE OF CONSULTATION: 04/02/2019 HISTORY: This is a patient of Dr. Bush. A 53-year-old without any significant past medical history until December when he came to the emergency department. He landed on some shrubs that went through his pants, and into his scrotal and anal region. He had a moderate amount of pain, and he had a presacral hematoma. Examination revealed some infiltration, and he had to go for surgery from penetration of the shrub. He returns now for colostomy takedown I believe, which has been done. He seemed to have tolerated the procedure well. No other significant past medical history. ALLERGIES: No known drug allergies. SOCIAL HISTORY: Forty pack year history of smoking. He uses alcohol regularly. He admits he has had used cocaine and marijuana in the past. FAMILY HISTORY: No history of coronary artery disease. No significant medical problems that he is aware of. REVIEW OF SYSTEMS: General: Appetite has been good. He has maintained his weight. No complaints of respiratory symptoms. No chest pain or tachy palpitations. GI and : He was anxious to get his colostomy taken down. He reports that he is passing some gas at this point, and wants to know when he can go home. LABORATORY DATA: Review of his labs shows his urinalysis unremarkable. Review of chemistries was from back in December. He may repeat some more blood work at this point. ASSESSMENT/PLAN: 1. Postoperative state. He is passing gas. He has not had a bowel movement yet. 2. Hypertension. Blood pressure appears well controlled. He had an open loop colostomy takedown with [id number] stapled anastomosis of the sigmoid colon. I think it might be prudent just to check some blood work and CBC. Review of his orders, he seems to be progressing in the right direction. cc: Vaibhav Connolly MD
[2019-04-03] MEDS: NORCO-10 PO PRN ×4 (03:04→19:26)
[2019-04-03] MEDS: HEPARIN SUBQ SCH ×3 (04:23→19:25)
[2019-04-03 06:52] LABS: BASO# 0.01 X1000 (0.0-0.2); BASO% 0.1 % (0.0-0.8); EOS# 0.11 X1000 (0.0-0.7); EOS% 0.9 % (0.0-10.0); HEMATOCRIT 41.7 % (42.0-52.0); HEMOGLOBIN 13.8 g/dL (14.0-18.0); IMM GRAN# 0.03 X1000 (0.0-0.04); IMM GRAN% 0.2 % (0.0-0.5); LYMPH# 1.28 X1000 (1.2-3.4); MCH 29.5 PG (27-31); MCHC 33.1 g/dL (33-37); MCV 89.1 FL (81-99); MONO# 0.72 X1000 (0.11-0.59); MONO% 5.6 % (1.7-9.3); MPV 11.5 FL (7.4-10.4); NEUT# 10.71 X1000 (1.4-6.5); NEUT% 83.2 % (42.2-75.2); PLT 231 X1000 (130-400); RBC 4.68 XMIL (4.7-6.1); RDW 14.8 % (11.5-14.5); WBC 12.86 X1000 (4.8-10.8)
[2019-04-03 07:14] LABS: AGAP 11; ALB/GLOB RATIO 1.1; ALBUMIN 3.7 g/dL (3.5-5.0); ALKALINE PHOSPHATASE 81 U/L (32-122); BUN 11 mg/dL (8-22); CALCIUM 9.1 mg/dL (8.8-10.2); CHLORIDE 100 mmol/L (98-107); COSMO 273; CREATININE 0.7 mg/dL (0.7-1.2); ESTIMATED GFR > 60; GLUCOSE 123 mg/dL (70-104); GOT 13 U/L (10-34); GPT 13 U/L (10-44); MAGNESIUM 1.8 mg/dL (1.5-2.7); SODIUM 136 mmol/L (136-145); TCO2 25 mmol/L (25-35); TOTAL BILIRUBIN 0.35 mg/dL (0.20-1.00); TOTAL PROTEIN 7.1 g/dL (6.3-8.3)
[2019-04-03 07:32] LABS: FREE T4 1.02 ng/dL (0.93-1.70); TSH 0.99 uIUmL (0.27-4.20)
[2019-04-03] MEDS: PERIDEX MT SCH ×2 (08:45→19:25)
[2019-04-03] MEDS: COLACE PO SCH (08:46)
[2019-04-03] MEDS: ENTEREG PO SCH ×2 (08:46→19:26)
--- NOTE | 2019-04-03 09:02 | GENERAL SURGERY PROGRESS NOTE ---
DATE: 04/03/2019 Mr. Pritchett is afebrile, heart rate is 93. Blood pressure 120/68. His abdomen is distended. He does have bowel sounds. He says he has passed some flatus but no bowel movement. He says he cannot take food very well because his tummy hurts. Today, his white count is 12,800, hemoglobin 13.8. Chemistry is fine. His wound looks fine. PLAN: The plan is to allow him p.o. intake if he can tolerate it. He should ambulate and we will not consider discharge until his ileus is resolved. cc: MD Vaibhav Benitez MD
--- NOTE | 2019-04-03 11:33 | PROGRESS NOTE ---
DATE: 04/03/2019 SUBJECTIVE: Mr. Pritchett still has not had a bowel movement, not passing gas. He can feel some gurgling in his abdomen. He remains afebrile. OBJECTIVE: Vital Signs: Temperature 98.3 degrees, pulse 96, respirations 14, blood pressure 120/68. Eyes: Pupils are equal and round. Lungs: Clear in all lung javier. Cardiovascular exam: Regular rhythm and rate without murmur or S3. Abdomen: Soft. Skin: Warm and dry. : Good urine output by report. ASSESSMENT AND PLAN: 1. Started him on oral intake. He has had a colostomy takedown. When bowels started moving, hopefully he can go home. 2. Hypertension. Blood pressure appears well controlled. Review of present orders: He is on low-dose heparin 5000 units subcutaneously q. 8 hours, Entereg which is alvimopan, which is 12 mg p.o. b.i.d. to help bowel stimulation, Colace 100 mg daily, takes hydrocodone p.r.n. pain, and he has Zofran for nausea. He is ambulating okay and seems to be making good progress. cc: Vaibhav Connolly MD
[2019-04-03] MEDS ORDERED: BLISTEX MEDICATED BERRY LIP BALM TOP PRN (18:27)
[2019-04-04] MEDS: NORCO-10 PO PRN ×4 (00:15→20:24)
[2019-04-04] MEDS: HEPARIN SUBQ SCH ×4 (00:39→20:25)
[2019-04-04] MEDS: ENTEREG PO SCH ×3 (00:40→20:24)
[2019-04-04] MEDS: PERIDEX MT SCH ×3 (00:40→20:26)
--- NOTE | 2019-04-04 07:39 | GENERAL SURGERY PROGRESS NOTE ---
DATE: 04/04/2019 Mr. Pritchett is afebrile with stable hemodynamics. His abdomen is moderately distended. He says he is passing flatus but no bowel movement. His abdomen is quiet on auscultation. ASSESSMENT AND PLAN: I do not think his ileus is resolved yet. We will continue in the hospital for now until his bowels start to move. cc: MD Vaibhav Benitez MD
[2019-04-04] MEDS: COLACE PO SCH (10:00)
[2019-04-04] MEDS: TYLENOL PO PRN ×2 (10:00→23:25)
--- NOTE | 2019-04-04 17:27 | PROGRESS NOTE ---
DATE: 04/04/2019 He is walking the halls. He is passing gas. He has not had a bowel movement yet. Vital signs are stable. Labs look good. I feel like his ileus has resolved. He had a colostomy takedown. Hopefully, he can go home soon. I do not see any change in his orders. cc: Vaibhav Connolly MD
[2019-04-05] MEDS: NORCO-10 PO PRN ×2 (02:49→06:33)
[2019-04-05] MEDS: HEPARIN SUBQ SCH (05:41)
--- NOTE | 2019-04-05 06:03 | DISCHARGE SUMMARY ---
ADMISSION DATE: 03/31/2019 DISCHARGE DATE: 04/05/2019 ADMITTING DIAGNOSIS: Admission for surgery for colostomy takedown. DISCHARGE DIAGNOSIS: Status post colostomy takedown. ADMITTING PHYSICIAN: Dr. Gabriel Woodward CONSULTATIONS: Dr. Connolly with the hospitalist service for hypertension management. PROCEDURES: On 03/31/2019, patient underwent colostomy takedown. BRIEF HISTORY AND COURSE OF STAY: A 54-year-old gentleman who presented several months ago with a rectal trauma. He had a diverting colostomy secondary to this. Otherwise, he was admitted for colostomy takedown. He was admitted, and underwent previously described procedure which he tolerated well. His postoperative course was essentially uneventful. He did have some hypertension, which we got the hospitalist to see him for and that has seemed to improve without the need of additional medication. On the day of discharge, he was up and ambulating tolerating p.o. having bowel movements and his pain controlled. It is felt that he would be safe to be discharged home. All arrangements were made. DISPOSITION: Home. DISCHARGE CONDITION: Stable. FOLLOW-UP INSTRUCTIONS: Patient told to follow up with Dr. Woodward in 1 to 2 weeks. DISCHARGE MEDICATIONS: Patient was given prescription for pain medicine. cc: MD Vaibhav Portillo MD
[2019-04-05 07:44] VITALS: BP 121/75
--- NOTE | 2019-04-05 07:52 | GENERAL SURGERY PROGRESS NOTE ---
DATE: 04/05/2019 SUBJECTIVE: The patient seems to be doing okay. OBJECTIVE: Vital Signs: The patient is currently afebrile. His vital signs are stable. General Examination: No acute distress. Cardiovascular: Regular rate and rhythm. Lungs: Grossly clear. Abdomen: Soft, appropriately tender. Bowel sounds auscultated. ASSESSMENT AND PLAN: A 54-year-old gentleman status post colostomy takedown. Postoperative state. At this time, the patient seems to be doing well. He is having bowel movements. He is tolerating a regular diet. We will discharge him today. cc: MD Vaibhav Portillo MD
[2019-04-05] MEDS: ENTEREG PO SCH (08:14)
[2019-04-05] MEDS: PERIDEX MT SCH (08:14)
[2019-04-05] MEDS: COLACE PO SCH (08:14)
== END 2019-04-05 09:22 | disposition home or self-care (01) | DRG 330 ==
LOC: SURHOLD 05:24 → SUATTDRO 05:24 → 4N 13:36
PROVIDERS: ADMIT Emergency Medicine; ATTEND Surgery
CPT/HCPCS: 80053; 81001; 82607; 82746; 83735; 84439; 84443; 85025; 88304; 94761; 94799; 97162; A9270; C9290; J0131; J0330; J0694; J1100; J1170; J1644; J2405; J3010; J3480; J7060; J7120; S0020